=== PATIENT | female | born 1965 | race Two or more races ===

== ENCOUNTER 2023-02-27 17:36 | Emergency (ER) | payer OTHER ==
[~2023-02-27] VITALS: Ht 172.7 cm; Wt 77.1 kg
[2023-02-27] MEDS ORDERED: HYZAAR 100-12.1 EACH (17:44)
[2023-02-27 18:42] LABS: HEMATOCRIT 36.6 % (36.0-45.00); HEMOGLOBIN 12.1 g/dL (12.0-15.00); MEAN CELL VOLUME 82.8 fL (80.00-100.00); MEAN CORPUSCULAR HEMOGLOBIN 27.3 pg (27.00-32.0); MEAN CORPUSCULAR HGB CONC 32.9 g/dl (32.0-36.0); PLATELET COUNT 240 K/uL (150-450); RED BLOOD COUNT 4.43 M/uL (4.00-6.00); RED CELL DISTRIBUTION WIDTH 13.8 % (11.5-14.5)
[2023-02-27 19:03] LABS: CALCIUM 9.2 mg/dL (8.5-10.1); CREATININE SERUM 0.62 mg/dL (0.55-1.02); GFR 99.93; POTASSIUM 3.85 mEq/L (3.5-5.1)
== END 2023-02-28 00:07 | disposition home or self-care (01) ==
LOC: ER 17:36
PROVIDERS: Emergency Medicine
DX: K52.9 Noninfective gastroenteritis and colitis, unspecified (principal)